=== PATIENT | male | born 1945 | race Caucasian/White ===

== ENCOUNTER 2025-06-07 08:23 | Outpatient (AMB) | payer MEDICARE, OTHER, SELFPAY ==
--- OUTSIDE RECORDS SUMMARY | 2025-06-07 08:32 | XMS_ITS | Encounter Summary ---
Author Organization [facility] Address [address] [place] [id number] Phone Care Team Providers Care Regulatory Affairs Intern Name Role Phone Meron Anton MD Primary Care Provider [phone] Encounter Details Date Type Department Care Team ([facility] st Contact Info) Description 09/23/2022 Procedure Pass [facility] [address] [place] [address] Social History Tobacco Use Types Packs/Day Years Used Date Smoking Tobacco: Former Smokeless Tobacco: Never Comments:quit 35 yrsa go Alcohol Use Standard Drinks/Week Comments Yes 1 (1 standard drink = 0.6 oz pur e alcohol) 3 mixed drinks per month Sex and Gender Information Value Date Recorded Sex Assigned at Not on file Legal Sex Male 12:00 PM EDT Gender Identity Not on file Sexual Orientation Not on file documented as of this encounter Plan of Treatment Not on file documented as of this encounter Visit Diagnoses Not on filedocumented in this encounter Care Teams Regulatory Affairs Intern Relationship Specialty Start Date End Date Meron Anton MD [address] [place] [address] PCP - General Internal Medicine 09/15/22 documented as of this encounter Additional Source Comments The information contained in this document represents components of the legal health record. It is not the complete legal health record.[facility]
--- OUTSIDE RECORDS SUMMARY | 2025-06-07 08:32 | XMS_ITS | Clinical Summary ---
Author Organization [facility] [address] [facility] Address [address] [facility] [place] [address] Phone Care Team Providers Care Provider Contracting Consultant Name Role Phone Meron Anton MD Primary Care Provider [phone] Allergies Active Allergy Reactions Criticality Noted Date Comments Vancomycin Itching,Skin Problems High 11/23/2024 Medications atorvastatin (LIPITOR) 40 mg tablet TAKE 1 TABLET ORALLY ONCE A DAY 90 DAYS Active blood-glucose meter (ONETOUCH VERIO METER MISC) 1 Device by Does not apply route daily. Dx Code E11.51 024 Active clopidogreL (PLAVIX) 75 mg tablet Take 1 Tab by mouth daily. Active donepeziL (ARICEPT) 10 mg tablet TAKE 1 TABLET BY MOUTH EVERY DAY AT BEDTIME FOR 90 DAYS Active gabapentin (NEURONTIN) 300 mg capsule Take 1 capsule (300 mg total) by mouth 3 (three) times a day. 024 Active lancets (OneTouch Delica Plus Lancet) 30 gauge 1 Stick by Does not apply route daily. 024 Active OneTouch UltraSoft Lancets Use to check BS daily. Dx Code E11.51 024 Active primidone (MYSOLINE) 50 mg tablet Take 1 Tablet by mouth. 022 Active aspirin 81 mg EC tablet 1 TABLET DAILY Activ e memantine (NAMENDA) 5 mg tablet Take 1 tablet (5 mg total) by mouth 2 times daily. Active ferrous sulfate 325 mg (65 mg elemental iron) tablet Take 1 tablet (325 mg total) by mouth 1 (one) time each day. Active magnesium oxide (MAG-OX) 400 mg magnesium tablet Take 1 tablet (400 mg total) by mouth 1 (one) time each day. Active blood sugar diagnostic (Convoeuch Verio test strips) test stripIndication s:Type 2 diabetes mellitus with diabetic peripheral angiopathy without gangrene ([facility] V24, [facility] V28) Use to test blood sugar 3 times a day. 300 strip 3 025 Active BD Janene 2nd Gen Pen Needle 32 gauge x 5/32 needle USE ONE DAILY WITH INSULIN. 100 each 3 025 Active omeprazole (PriLOSEC) [address] capsule Take 1 capsule (20 mg total) by mouth 1 (one) time each day. Do not crush or chew. 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 2 mL 025 Active Additional Information Patient taking differently: 1.5 mgsubcutaneous Every 7 days, Reported on 04/24/2025 lisinopril (PRINIVIL,STR NJ) 40 mg tablet Take 1 tablet (40 mg total) by mouth 1 (one) time each day. 90 tablet 025 Active insulin glargine U-300 (Toujeo SoloStar U-300 Insulin) 300 unit/mL (1.5 mL) CONCENTRATED injection pen 28 units SC at bedtime 15 mL 025 Active insulin degludec (TRESIBA FlexTouch U-200) 200 unit/mL (3 mL) CONCENTRATED injection pen 28 units SC at bedtime 15 mL 025 Active venlafaxine XR (EFFEXOR-XR) 150 mg 24 hr capsule TAKE 1 CAPSULE BY MOUTH 1 TIME EACH DAY. 90 capsule 1 025 Active traZODone (DESYREL) 100 mg tablet Take 0.5 tablets (50 mg total) by mouth at bedtime. 45 tablet 1 025 Active venlafaxine XR (EFFEXOR-XR) 150 mg 24 hr capsule Take 1 capsule (150 mg total) by mouth 1 (one) time each day. 90 capsule 1 025 2024 Discontinued traZODone (DESYREL) 100 mg tablet Take 0.5 tablets (50 mg total) by mouth at bedtime. 30 tablet 025 2024 Discontinued(R eorder) Active Problems Problem Noted Date Diagnosed Date Bleeding nose 11/25/2024 Overview (11/25/2024): Status post interventional radiology embolization. During hospitalization, see note November 23, 2024 Assessment & Plan (11/25/2024 5:44 PM EST): Orders: CBC and differential; Future Iron deficiency anemia due to chronic blood loss 11/25/2024 Overview (11/25/2024): Multifactorial, melena under the setting of acute illness believed to be related with nosebleed. 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 Alzheimer's disease ([facility] V24, [facility] V28) 1 12/07/2022 Assessment & Plan (01/26/2025 7:37 AM EDT): Assessment & Plan (11/25/2024 5:44 PM EST): Assessment & Plan (09/07/2024 3:53 PM EST): Tubular adenoma 04/23/2022 Overview (07/29/2024): Repeat CN in 5 years (due November 2020) Bronchiectasis without compl ication [place] [place] [facility] [place] 12/20/2015 Type 2 diabetes mellitus wit h ophthalmic complication [place] [place], [facility] V28) 08/21/2014 Overview (07/29/2024): Trace Cataracts noted outside eye exam 07/15/13 Dr Tovar. Type 2 diabetes mellitus wit h peripheral vascular disease [place] [place], [facility] V28) 08/21/2014 Assessment & Plan (11/25/2024 5:44 PM EST): Orders: Comprehensive metabolic panel; Future Assessment & Plan (09/07/2024 3:53 PM EST): Posttraumatic stress disorder 05/15/2014 Type II diabetes mellitus wi th neurological manifestations [place] [place] [facility] [place] 03/09/2013 Assessment & Plan (11/25/2024 5:44 PM EST): Assessment & Plan (10/20/2024 1:04 PM EST): His A1c was 10.3 3 months ago. He has an upcoming visit with endocrinology. Will recheck A1c. He continues on metformin, Lantus, Trulicity. PVD (peripheral vascular disease) ([facility] V24) 01/03/2013 Overview (07/29/2024): [facility] Assessment & Plan (11/25/2024 5:46 PM EST): Assessment & Plan (10/20/2024 1:04 PM EST): He is having surgery with [facility] vascular tomorrow. There has been no acute worsening of his symptoms from when he saw the vascular surgeon, but he continues to have significant discomfort in his foot. Assessment & Plan (09/07/2024 3:53 PM EST): Melanoma in situ of face ([facility] V24, [facility] V 28) 10/05/2012 Major depression 08/30/2012 Hematuria 04/20/2012 Overview (07/29/2024): - imaging ct 04/06 negative - cytology 04/06 negative Hypertrophy of prostate with urinary obstruction 04/20/2012 Psychosexual dysfunction 02/26/2010 Pure hypercholesterolemia 11/29/2009 Assessment & Plan (11/25/2024 5:44 PM EST): Orders: Comprehensive metabolic panel; Future Assessment & Plan (09/07/2024 3:53 PM EST): Basal cell carcinoma of skin 02/15/2009 Overview (07/29/2024): BCC right sideburn (nodular) Essential hypertension, benign 04/07/2006 Assessment & Plan (10/20/2024 1:04 PM EST): His blood pressure was initially elevated but improved somewhat with repeat testing. With patient's upcoming surgery tomorrow, I will defer any changes to his blood pressure regimen at this time. Assessment & Plan (09/07/2024 3:53 PM EST): Memory loss 04/06/2006 Assessment & Plan (10/20/2024 1:04 PM EST): Patient has ongoing memory issues. He is requesting a parking placard due to the issues in his foot. When we discussed this, I had mentioned that I have to also evaluate him for his safety driving, and I certainly have concerns in him leaning towards saying he is not capable of continue driving. Patient reports he had actually put a lot of thought to this himself, and is ready to give up his ability to drive. 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; 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 resolved after treatment, unspecified laterality, unspecified whether manager long term care insulin use (CMS/HCC V24, CMS/HCC V28) 04/13/2025 Telephone Adult Medicine [address] [phone] Meron Anton MD VNA 04/05/2025 10:30 AM EDT Office Visit Adult [address] [phone] Meron Anton MD 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 resolved after treatment, unspecified laterality, unspecified whether mcc insulin use ([facility] [place], [facility] V28) (Primary Dx); S/P carotid endarterectomy; Tachycardia; Anemia, unspecified type; Chronic kidney disease, unspecified CKD stage 03/21/2025 11:00 AM EDT Office Visit Endocrinology [address] [phone] Beth Royal [place] 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 resolved after treatment, unspecified laterality, unspecified whether manager long term care insulin use ([facility] [place], [facility] V28) (Primary Dx); Type II diabetes mellitus with neurological manifestations ([facility] [place], [facility] V28) from Last 3 Months Immunizations Name Administration Dates Next Due H1N1 Inj Preservative Free 11/29/2009 Influenza trivalent, 0.5mL ( Fluzone High-dose) 65yo and older 07/21/2024,07/03/2020,07/04/2019,08/09,07/02/2017,07/11/2016 Influenza trivalent, with pr eservative (Fluzone; Afluria) 6mo and older 08/31/2015,06/01/2014,07/14/2013,09/16,08/26/2011,08/11/2010,07/25/2009 ,09/09/2007 Influenza, Unspecified 07/21/2021,07/11/2016 [employer] SARS-CoV-2 COVID-19, mRNA, LNP-S, preservative free 07/22/2021 Pneumococcal conjugate 13 va lent (Prevnar 13, PCV13) 2mo and older 03/01/2015 Pneumococcal polysaccharide 23 valent (Pneumovax 23) 2yo and older 10/10/2016,08/29/2009,01/20/2002 Td Tetanus diptheria (Tdvax) 7yo and older 04/23/2022,09/27/2003 Tdap Tetanus diptheria acell ular pertussis (Boostrix; Adacel) 7yo and older 12/08/2011 Zoster Live 06/01/2014 Zoster recombinant (Shingrix ) 19yo and older 07/18/2019,04/11/2019 Surgical History Surgery Date Site/Laterality Comments TONSILLECTOMY 14 YO PROCEDURE: HISTORICAL TONSILLECTOMY; COMMENT: as child ADENOIDECTOMY PROCEDURE: HISTORICAL ADENOIDECTOMY OTHER SURGICAL HISTORY x 2 PROCEDURE: HISTORICAL MELANOMA; COMMENT: right sikhism and left eyebrow OTHER SURGICAL HISTORY 10/26/2011 PROCEDURE: STENT, NON-COR, TEM W/O DEL; COMMENT: Both legs COLONOSCOPY 11/26/2005 PROCEDURE: [place] COLONOSCOPY STOMA DX INCLUDING COLLJ SPEC SPX; COMMENT: nl except tics COLONOSCOPY 12/11/2015 PROCEDURE: [place] COLONOSCOPY STOMA W/RMVL JAGJIT POLYP/OTH LES SNARE; COMMENT: adenoma and tics; repeat in 5 years with 48 hour, 8 liter Colyte prep OTHER SURGICAL HISTORY 01/30/2022 PROCEDURE: GOWDIN DOCUMENTED; COMMENT: bilat significant vascular disease Medical History Medical History Date Comments Diverticulosis of colon (wit hout mention of hemorrhage) DX:Diverticulosis of colon ( without mention of hemorrhage) Anxiety state, unspecified DX:An xiety state, unspecified Overweight(278.02) DX:Overweight (278.02) Tuberculosis of lung, infilt rative, confirmation unspecified 04/06/2006 DX:Tuberculosis of lung, infiltrative, confirmation unspecified; COMMENT: Treated as child Memory loss 04/06/2006 DX:Memory loss Essential hypertension, benign 04/07/2006 D X:Essential hypertension, benign Melanoma ([facility] V[facility], [facility] V28) 12/28/2008 DX:Melanoma (HCC) Hematuria 04/20/2012 DX:Hematuria Hypertrophy of prostate with urinary obstruction and other lower urinary tract symptoms (LUTS) 04/20/2012 DX:Hypertrophy of prostate w ith urinary obstruction and other lower urinary tract symptoms (LUTS) Compound nevus 11/23/2012 DX:Compound nevu s Peripheral vascular disease ([facility] V[facility]) 01/03/2013 DX:Peripheral vascular disea se (HCC) Type 2 diabetes mellitus wit hout complications ([facility] V[facility], [facility] V28) DX:Type 2 diabetes mellitus without complications (HCC) Family history of colon canc er in mother DX:Family history of colon c ancer in mother; COMMENT: In her 60s Tubular adenoma of colon DX:Tubu lar adenoma of colon Peripheral vascular disease ([facility] V[facility]) DX:Peripheral vascular disea se (HCC); COMMENT: On Plavix Depressive disorder DX:Depressiv e disorder Hyperlipidemia DX:Hyperlipidemi a Family History Medical History Relation Name Comments Lung cancer Brother 1 Other cancer Brother 2 unknown Colon cancer Mother Relation Name Status Comments Brother 1 Brother 2 Brother 3 lung cancer Brother 4 UK possible can cer Daughter Alive 30 years old-he althy Father Drowned Maternal Grandfather [place] Maternal Grandmother [place] Mother Colon Ca Paternal Grandfather [place] Paternal Grandmother [place] Sister Alive 2 sisters ( hea lth unknown) Son Alive 25 years old-he althy Social History Tobacco Use Types Packs/Day Years Used Date Smoking Tobacco: Former Cigarettes Q uit: 10/26/1969 Smokeless Tobacco: Former Tobacco Cessation:Counseling Given: Not Answered Alcohol Use Standard Drinks/Week Comments Yes 0 (1 standard drink = 0.6 oz pur e alcohol) Housing Instability Answer Date Recorde d Are you worried that in the next 2 months you may not have stable housing? No 12/14/2024 Food Access & Nutrition Answer Date Rec orded Do you have access to a vari ety of food including fruits and vegetables? No 12/14/2024 Access to Healthcare Answer Date Record ed Within the last 3 months, ho w many times did you visit the emergency department for your medical care? 1 12/14/2024 Health Literacy Answer Date Recorded How often do you need to hav e someone help you when you read instructions, pamphlets, or other written material from your doctor or pharmacy? Always 12/14/2024 Caregiver: How often do you need to have someone help you when you read instructions, pamphlets, or other written material from your doctor or pharmacy? Not on file 12/14/2024 Financial Risk Answer Date Recorded How hard is it for you to pa y for the very basics like food, housing, medical care, and air conditioning / heating? Not very hard 12/14/2024 Transportation Answer Date Recorded Has the lack of transportati on kept you from meetings, work, or from getting things needed for daily living? No Has the lack of transportati on kept you from medical appointments or from getting medications? No 12/14/2024 Social Isolation Answer Date Recorded How often do you feel lonely or isolated from th ose around you? Never 12/14/2024 Food Risk Answer Date Recorded Within the past 12 months we worried whether our food would run out before we got money to buy more. Never true 12/14/2024 Within the past 12 months th e food we bought just didn't last and we didn't have money to get more. Never true 12/14/2024 Dependent Care Answer Date Recorded Do you need help finding or paying for care for your loved ones. For example, special needs child caregiver or elderly care for an older adult? No 12/14/2024 Education Answer Date Recorded Do you think completing more education or training, like finishing a GED, going to college, or learning a trade, would be helpful for you? No 12/14/2024 Employment and Income Answer Date Recor ded During the last four weeks, have you been actively looking for work? No 12/14/2024 Living Situation Answer Date Recorded What is your living situation? 0 12/14/2024 Interpersonal Safety Answer Date Record ed Physical Abuse 02/28/2025 Verbal Abuse 02/28/2025 Sex and Gender Information Value Date Recorded Sex Assigned at Male 12/21/2024 1:08 PM EST Legal Sex Male 11:56 AM EST Gender Identity Male 12/21/2024 1:08 PM EST Sexual Orientation Straight 12/21/2024 1: 08 PM EST Obstetrics History Last Filed Vital Signs Vital Sign Reading Time Taken Comments Blood Pressure 134/78 04/24/2025 10:10 AM EDT Pulse 76 04/24/2025 10:10 AM EDT Temperature 36.1 C (96.9 F) 04/24/2025 10:10 AM EDT Respiratory Rate 20 04/24/2025 10:10 AM EDT Oxygen Saturation 93% 03/21/2025 10:59 AM EDT Inhaled Oxygen Concentration - - Weight 101 kg (223 lb) 04/24/2025 10:10 AM EDT Height 175.3 cm (5' 9.02 ) 04/24/2025 10:10 AM E DT Body Mass Index 32.91 04/24/2025 10:10 AM EDT Plan of Treatment Upcoming Encounters Date Type Department Care Team (Late st Contact Info) Description 06/21/2025 10:45 AM EDT Office Visit Endocrinology - [address] [phone] Beth Royal PA [address] [place] [address] 07/28/2025 10:45 AM EDT Office Visit Adult Medicine [facility] [address] [place] [address] Meron Anton MD [address] [place] [address] 08/17/2025 8:50 AM EDT Office Visit Gastroenterology - [place] [address] [address] [place] [phone] Philipp Kahn DO [address] [place] [address] Health Maintenance Due Date Last Done Comments RSV Immunization Adult Patients (1 - 1-dose 75+ series) 2019 Medicare Annual Wellness Visit 07/30/2024 07/30/2023 Diabetes: Annual Foot Exam 09/15/2024 09/15/2023 Depression Screening 10/26/2024 07/30/2023 COVID-19 Vaccine (9 - Pfizer risk 2023- season) 2025 07/21/2024, 11/03/2023, 03/30/2023, Additional history exists Diabetes: Annual Retina Eye Exam 02/07/2025 02/08/2024 Influenza Vaccine (#1) 2025 , 07/03/2023, 07/30/2022, Additional history exists Diabetes: Blood Sugar Control Test (HGBA1C) 10/21/2025 04/21/2025, 12/15/2024, 10/29/2024, Additional history exists Social Influencers of Health Screening 12/14/2025 12/14/2024 Falls Risk Assessment 02/28/2026 02/28/2025 , 09/07/2024, 09/07/2024 Diabetes: Annual Urine Albumin-Creatinine Ratio (uACR) 04/21/2026 04/21/2025, 03/29/2025, 12/18/2023 Diabetes: Annual GFR (Glomerular Filtration Rate) 04/21/2026 04/21/2025, 12/21/2024, 12/15/2024, Additional history exists Hypertension/CHF/CAD Annual BMP Blood Test 04/21/2026 04/21/2025, 12/21/2024, 12/15/2024, Additional history exists Colorectal Cancer Screening: Colonoscopy 01/19/2029 01/20/2024 Cholesterol Screening (Lipid Panel) 04/21/2030 04/21/2025, 12/02/2023 DTaP,Tdap,and Td Vaccines (4 - Td or Tdap) 04/23/2032 04/23/2022, 12/08/2011, 09/27/2003 Pneumococcal Vaccine: 50+ Years Completed 10/10/2016, 03/01/2015, 08/29/2009, Additional history exists Zoster Vaccines Completed 07/18/2019, 03/26, 06/01/2014 HIB Vaccines Aged Out No longer eligi ble based on patient's age to complete this topic HPV Vaccines Aged Out No longer eligi ble based on patient's age to complete this topic Hepatitis A Vaccines Aged Out No long er eligible based on patient's age to complete this topic Hepatitis B Vaccines Aged Out No long er eligible based on patient's age to complete this topic IPV Vaccines Aged Out No longer eligi ble based on patient's age to complete this topic MMR Vaccines Aged Out No longer eligi ble based on patient's age to complete this topic Meningococcal ACWY Vaccine Aged Out N o longer eligible based on patient's age to complete this topic Meningococcal B Vaccine Aged Out No l onger eligible based on patient's age to complete this topic RSV Immunization Patients Under 20 months Aged Out No longer eligible based on patient's age to complete this topic Varicella Vaccines Aged Out No longer eligible based on patient's age to complete this topic Procedures Procedure Name Priority Date/Time Associated Diagnosis Comments MANUAL DIFFERENTIAL - SYSMEX WAM Routine 04/21/2025 8:10 AM EDT Anemia, unspecified type CBC WITH AUTO DIFFERENTIAL Routine 04/21/2025 8:10 AM EDT Anemia, unspecified type HEMOGLOBIN A1C Routine 04/21/2025 8:10 AM EDT 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 resolved after treatment, unspecified laterality, unspecified whether manager long term care insulin use (CMS/HCC V24, CMS/HCC V28) Type II diabetes mellitus with neurological manifestations (CMS/HCC V24, CMS/HCC V28) LIPID PANEL WITH REFLEX TO DIRECT LDL Routine 04/21/2025 8:10 AM EDT 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 resolved after treatment, unspecified laterality, unspecified whether mcc insulin use (CMS/HCC V24, CMS/HCC V28) Type II diabetes mellitus with neurological manifestations (CMS/HCC V24, CMS/HCC V28) MICROALBUMIN CREATININE URINE RATIO Routine 04/21/2025 8:10 AM EDT 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 resolved after treatment, unspecified laterality, unspecified whether mcc insulin use (CMS/HCC V24, CMS/HCC V28) Type II diabetes mellitus with neurological manifestations (CMS/HCC V24, CMS/HCC V28) CBC AND DIFFERENTIAL Routine 04/21/2025 8:10 AM EDT Anemia, unspecified type COMPREHENSIVE METABOLIC PANEL Routine 04/21/2025 8:10 AM EDT Chronic kidney disease, unspecified CKD stage THYROID STIMULATING HORMONE WITH REFLEX TO FREE T4 AND FREE T3 Routine 04/21/2025 8:10 AM EDT Tachycardia ECG 12-LEAD Routine 04/05/2025 12:01 PM EDT Tachycardia DIABETES EYE EXAM Routine 02/08/2024 COLONOSCOPY Routine 01/20/2024 DIABETES FOOT EXAM Routine 09/15/2023 DEPRESSION SCREENING Routine 07/30/2023 from Last 3 Months or Most Recently Relevant to Health Maintenance Results * Thyroid stimulating hormone with reflex to free t4 and free t3 (04/21/2025 8:10 AM EDT) TSH 1.16 0.40 - 4.00 mcIU/mL LAB CHEMISTRY METHOD 04/21/2025 12:[address] [facility] Blood Venous blood specimen / Unknown Venipuncture / Unknown 04/21/2025 8:10 AM EDT 04/21/2025 8:10 AM EDT Meron Anton MD LAB BLOOD ORDERABLES Final Resul t [facility] [address] [place] [address], * Lipid panel with reflex to direct LDL (04/21/2025 8:10 AM EDT) Cholesterol 154 0 - 200 mg/dL LAB CHEMISTRY METHOD 04/21/2025 11:57 AM [facility] Triglycerides 119 0 - 150 mg/dL LAB CHEMISTRY METHOD 04/21/2025 11:57 AM [facility] HDL 55 >=40 mg/dL LAB CHEMISTRY METHOD 04/21/2025 11:57 AM [facility] LDL Calculated 75 0 - 100 mg/dL LAB CHEMISTRY METHOD 04/21/2025 11:57 AM [facility] VLDL Cholesterol Femi 23.8 mg/dL LAB CHEMISTRY METHOD 04/21/2025 11:57 AM [facility] Non HDL Chol. (LDL+VLDL) 99 <145 mg/dL LAB CHEMISTRY METHOD 04/21/2025 11:57 AM [facility] Chol/HDL Ratio 2.8 0.0 - 4.4 LAB CHEMISTRY METHOD 04/21/2025 11:57 AM [facility] Blood Venous blood specimen / Unknown Venipuncture / Unknown 04/21/2025 8:10 AM EDT 04/21/2025 8:10 AM EDT us Beth ROSENBERG LAB BLOOD ORDERABLES Final Result [facility] [address] [place] [address], * (ABNORMAL) Manual differential (04/21/2025 8:10 AM EDT) Neutrophils % 74.0 % LAB HEMETOLOGY METHOD 04/21/2025 1:[address] [facility] Bands % 2.0 % LAB HEMETOLOGY METHOD 04/21/2025 1:[address] [facility] Lymphocytes % 13.0 % LAB HEMETOLOGY METHOD 04/21/2025 1:[address] [facility] Monocytes % 5.0 % LAB HEMETOLOGY METHOD 04/21/2025 1:[address] [facility] Eosinophils % 5.0 % LAB HEMETOLOGY METHOD 04/21/2025 1:[address] [facility] Basophils % 1.0 % LAB HEMETOLOGY METHOD 04/21/2025 1:21 PM [facility] Neutrophils Absolute Manual 10.80(H) 1.50 - 7.00 K/mcL LAB HEMETOLOGY METHOD 04/21/2025 1:[address] [facility] Bands Absolute Manual 0.29(H) 0.00 - 0.00 K/mcL LAB HEMETOLOGY METHOD 04/21/2025 1:[address] [facility] Lymphocytes Absolute 1.90 1.00 - 5.00 K/mcL LAB HEMETOLOGY METHOD 04/21/2025 1:21 PM [facility] Monocytes Absolute Manual 0.73 0.20 - 1.00 K/mcL LAB HEMETOLOGY METHOD 04/21/2025 1:[address] [facility] Eosinophils Absolute Manual 0.73(H) 0.00 - 0.50 K/mcL LAB HEMETOLOGY METHOD 04/21/2025 1:[address] [facility] Basophils Absolute Manual 0.15 0.00 - 0.20 K/mcL LAB HEMETOLOGY METHOD 04/21/2025 1:[address] [facility] Rbc Morphology Present( A) Consistent with indices, Normal for Isom LAB HEMETOLOGY METHOD 04/21/2025 1:[address] [facility] Comment:RBC: Morphology agre es with CBC Platelet Morphology - WAM See Note(A) Normal LAB HEMETOLOGY METHOD 04/21/2025 1:[address] [facility] Comment:PLT: Normal Polychromasia Present Present( A) (none) LAB HEMETOLOGY METHOD 04/21/2025 1:[address] [facility] Ovalocytes Present 5 - 10%(A) (none) LAB HEMETOLOGY METHOD 04/21/2025 1:[address] [facility] Schistocytes Present < 5%(A) (none) LAB HEMETOLOGY METHOD 04/21/2025 1:[address] [facility] Blood Venous blood specimen / Unknown Venipuncture / Unknown 04/21/2025 8:10 AM EDT 04/21/2025 8:10 AM EDT us Meron Anton MD LAB BLOOD ORDERABLES Final Resul t [facility] [address] [place] [address], * (ABNORMAL) CBC auto differential (04/21/2025 8:10 AM EDT) WBC 14.6(H) 4.8 - 10.8 K/mcL LAB HEMETOLOGY METHOD 04/21/2025 1:[address] [facility] RBC 3.90(L) 4.50 - 5.50 M/mcL LAB HEMETOLOGY METHOD 04/21/2025 1:21 PM [facility] Hemoglobin 10.7(L) 13.5 - 17.5 g/dL LAB HEMETOLOGY METHOD 04/21/2025 1:21 PM [facility] Hematocrit 34.1(L) 42.0 - 54.0 % LAB HEMETOLOGY METHOD 04/21/2025 1:21 PM [facility] MCV 87.9 79.0 - 98.0 FL LAB HEMETOLOGY METHOD 04/21/2025 1:21 PM [facility] MCH 27.6 27.0 - 32.0 pcg LAB HEMETOLOGY METHOD 04/21/2025 1:21 PM [facility] MCHC 31.4(L) 32.0 - 37.0 g/dL LAB HEMETOLOGY METHOD 04/21/2025 1:21 PM [facility] RDW 27.8(H) 11.0 - 15.0 % LAB HEMETOLOGY METHOD 04/21/2025 1:21 PM [facility] Platelets 347 130 - 400 K/mcL LAB HEMETOLOGY METHOD 04/21/2025 1:21 PM [facility] Comment:reviewed by slide MPV 10.8 7.0 - 11.0 FL LAB HEMETOLOGY METHOD 04/21/2025 1:21 PM [facility] NRBC 0.3 <1.0 % LAB HEMETOLOGY METHOD 04/21/2025 1:21 PM [facility] NRBC Absolute 0.04 <0.10 K/mcL LAB HEMETOLOGY METHOD 04/21/2025 1:21 PM [facility] Blood Venous blood specimen / Unknown Venipuncture / Unknown 04/21/2025 8:10 AM EDT 04/21/2025 8:10 AM EDT Meron Anton MD LAB BLOOD ORDERABLES Final Resul t [facility] [address] [place] [address], * Microalbumin creatinine urine ratio (04/21/2025 8:10 AM EDT) Creatinine, Urine 98.0 mg/dL LAB CHEMISTRY METHOD 04/21/2025 12:[address] [facility] Microalb, Ur 7.6 0.0 - 29.0 mg/L LAB CHEMISTRY METHOD 04/21/2025 12:[address] [facility] Microalb/Creat Ratio 8 <30 mg/g creat LAB CHEMISTRY METHOD 04/21/2025 12:[address] [facility] Urine Urine specimen from urethra / Unknown Non-blood Collection / Unknown 04/21/2025 8:10 AM EDT 04/21/2025 8:10 AM EDT Beth ROSENBERG LAB URINE ORDERABLES Final Result Performing Organization Address [facility]/ZIP Md de Phone Number [facility] [address] [place] [address], [place] [phone] * (ABNORMAL) Hemoglobin A1c (04/21/2025 8:10 AM EDT) Hemoglobin A1C 8.6(H) <6.5 % LAB CHEMISTRY METHOD 04/21/2025 10:[address] [facility] Mean Bld Glu Estim. 200 mg/dL LAB CHEMISTRY METHOD 04/21/2025 10:[address] [facility] Blood Venous blood specimen / Unknown Venipuncture / Unknown 04/21/2025 8:10 AM EDT 04/21/2025 8:10 AM EDT us Beth ROSENBERG LAB BLOOD ORDERABLES Final Result [facility] [address] [place] [address], [place] [phone] * (ABNORMAL) Comprehensive metabolic panel (04/21/2025 8:10 AM EDT) Sodium 134 133 - 145 mmol/L LAB CHEMISTRY METHOD 04/21/2025 11:55 AM [facility] Potassium 4.9 3.5 - 5.5 mmol/L LAB CHEMISTRY METHOD 04/21/2025 11:55 AM [facility] Chloride 103 96 - 110 mmol/L LAB CHEMISTRY METHOD 04/21/2025 11:55 AM [facility] CO2 26 21 - 32 mmol/L LAB CHEMISTRY METHOD 04/21/2025 11:55 AM [facility] Anion Gap 5 3 - 11 LAB CHEMISTRY METHOD 04/21/2025 11:55 AM [facility] Glucose 198(H) 70 - 100 mg/dL LAB CHEMISTRY METHOD 04/21/2025 11:55 AM [facility] BUN 19 5 - 25 mg/dL LAB CHEMISTRY METHOD 04/21/2025 11:55 AM [facility] Creatinine 1.04 0.70 - 1.30 mg/dL LAB CHEMISTRY METHOD 04/21/2025 11:55 AM [facility] eGFR 73 >=60 mL/min/1. 73m2 LAB CHEMISTRY METHOD 04/21/2025 11:55 AM [facility] Comment:Calculation based on the Chronic Kidney Disease Epidemiology Collaboration (CKD-EPI) equation refit without adjustment for race. BUN/Creatinine Ratio 18.3 LAB CHEMISTRY METHOD 04/21/2025 11:55 AM [facility] Calcium 9.7 8.5 - 10.5 mg/dL LAB CHEMISTRY METHOD 04/21/2025 11:55 AM [facility] AST (SGOT) 21 10 - 42 unit/L LAB CHEMISTRY METHOD 04/21/2025 11:55 AM [facility] ALT (SGPT) 43 10 - 60 unit/L LAB CHEMISTRY METHOD 04/21/2025 11:55 AM [facility] Alkaline Phosphatase 80 42 - 121 unit/L LAB CHEMISTRY METHOD 04/21/2025 11:55 AM [facility] Total Protein 7.0 6.0 - 8.0 g/dL LAB CHEMISTRY METHOD 04/21/2025 11:55 AM [facility] Albumin 3.8 3.2 - 5.0 g/dL LAB CHEMISTRY METHOD 04/21/2025 11:55 AM [facility] Total Bilirubin 0.5 0.0 - 1.4 mg/dL LAB CHEMISTRY METHOD 04/21/2025 11:55 AM [facility] Blood Venous blood specimen / Unknown Venipuncture / Unknown 04/21/2025 8:10 AM EDT 04/21/2025 8:10 AM EDT Meron Anton MD LAB BLOOD ORDERABLES Final Resul t [facility] [address] [place] [address], * ECG 12 lead (04/05/2025 12:01 PM EDT) Narrative Meron Anton MD - 04/05/2025 12:01 PM EDT EKG for evaluation of patient's tachycardia showed a normal sinus rhythm [address]-T changes. us Meron Anton MD ECG ORDERABLES Final Result * Diabetes Eye Exam (02/08/2024) Pathologist [facility] [place] Diabetes: Annual Retina Eye Exam abstracted Historical Provider MD HEALTH MAINTENANCE Final Result * Colonoscopy (01/20/2024) Pathologist [facility] Colonoscopy no interpretation , abstracted Anatomical Region Laterality Modality Other Historical Provider HEALTH MAINTENANCE Final Result * Diabetes Foot Exam (09/15/2023) Pathologist [facility] Diabetes: Annual Foot Exam abstracted Historical Provider MD HEALTH MAINTENANCE Final Result * Depression Screening (07/30/2023) Pathologist [facility] Depression Screening abstracted Historical Provider HEALTH MAINTENANCE Final Result from Last 3 Months or Most Recently Relevant to Health Maintenance Insurance MEDICARE [facility] Care Teams Provider Contracting Consultant Relationship Specialty Start Date End Date Meron Anton MD [address] [place] [address] PCP - General Internal Medicine 04/25/20
--- OUTSIDE RECORDS SUMMARY | 2025-06-07 08:33 | XMS_ITS | Clinical Summary ---
Author Organization [facility] Address [address] [place] [address] Phone Care Team Providers Care Technical Operations Specialist Name Role Phone Meron Anton MD Primary Care Provider [phone] Allergies Active Allergy Reactions Criticality Noted Date Comments Vancomycin 12/29/2024 Medications acetaminophen (TYLENOL) 325 MG tablet Take 975 mg by mouth every 6 (six) hours if needed 10/28/2024 Active amLODIPine (NORVASC) 10 MG tablet Take 10 mg by mouth 1 (one) time each day 11/22/2024 Active aspirin 81 MG chewable tablet Chew 81 mg in the morning. Active atorvastatin (LIPITOR) 40 MG tablet Take 1 tablet by mouth 1 (one) time each day at the same time 09/15/2016 Active clopidogrel (PLAVIX) 75 MG tablet Take 75 mg by mouth in the morning. 09/26/2024 Active donepezil (ARICEPT) 10 MG tablet Take 10 mg by mouth in the morning. 03/17/2022 Active gabapentin (NEURONTIN) 300 MG capsule Take 300 mg by mouth in the morning and 300 mg at noon and 300 mg in the evening. 03/07/2024 Active ferrous sulfate 325 (65 Fe) MG tablet Take 325 mg by mouth in the morning. Active metFORMIN (GLUCOPHAGE) 500 MG tablet Take 250 mg by mouth in the morning and 250 mg at noon and 250 mg in the evening. Active pantoprazole (PROTONIX) 40 MG EC tablet Take 40 mg by mouth in the morning and 40 mg in the evening. 11/22/2024 Active primidone (MYSOLINE) 50 MG tablet Take 50 mg by mouth 1 (one) time each day Active traZODone (DESYREL) 50 MG tablet Take 0.5 tablets by mouth every night 10/28/2024 Active venlafaxine 150 MG 24 hr tablet Take 75 mg by mouth in the morning. 09/15/2016 Active hydrALAZINE 100 MG tablet Take 100 mg by mouth in the morning and 100 mg at noon and 100 mg in the evening. 11/22/2024 Active insulin glargine (LANTUS) 100 UNIT/ML injection Inject under the skin every night Active memantine (NAMENDA) 5 MG tablet Take 5 mg by mouth in the morning and 5 mg in the evening. Active isosorbide mononitrate (IMDUR) 30 MG 24 hr tablet Take 30 mg by mouth 1 (one) time each day Do not crush or chew. Active magnesium oxide (MAG-OX) 400 MG tabletIndication s:Hypomagnesemia Take 1 tablet (400 mg total) by mouth 1 (one) time each day 30 tablet 11 01/22/2025 01/23/20 26 Active lisinopril 40 MG tablet Take 40 mg by mouth in the morning. 11/22/2024 Active Dulaglutide (Trulicity) 1.5 MG/0.5ML solution auto-injector Inject 0.75 mg under the skin 12/02/2023 Active omeprazole (PriLOSEC) [address] capsule Take 1 capsule by mouth in the morning and 1 capsule in the evening. 03/17/2024 Active Active Problems Problem Noted Date Diagnosed Date Hypomagnesemia 04/03/2025 Chronic kidney disease, stage 2 (mild) Acute nontraumatic kidney injury, not otherwise specified 12/29/2024 Hypertension 12/29/2024 Iron deficiency anemia, not otherwise specified 12/29/2024 Encounters Date Type Department Care Team Description 04/03/2025 9:30 AM EDT [facility] [address] [address] Jada Williamson ARNP Chronic kidney disease, stage 2 (mild) (Primary Dx); Hypertension; Hypomagnesemia; Iron deficiency anemia, not otherwise specified; Anti-nuclear factor detected from Last 3 Months Family History Medical History Relation Comments Dementia Mother Relation Status Comments Mother Social History Tobacco Use Types Packs/Day Years Used Date Smoking Tobacco: Former Cigarettes Tobacco Cessation:Counseling Given: Not Answered Alcohol Use Standard Drinks/Week Comments Yes 0 (1 standard drink = 0.6 oz pur e alcohol) Sex and Gender Information Value Date Recorded Sex Assigned at Not on file Legal Sex Male 9:32 AM EST Gender Identity Not on file Sexual Orientation Not on file Last Filed Vital Signs Vital Sign Reading Time Taken Comments Blood Pressure 120/54 04/03/2025 10:01 AM EDT Pulse 75 04/03/2025 9:29 AM EDT Temperature - - Respiratory Rate - - Oxygen Saturation - - Inhaled Oxygen Concentration - - Weight 99.3 kg (219 lb) 04/03/2025 9:29 AM EDT Height - - Body Mass Index - - Plan of Treatment Upcoming Encounters Date Type Department Care Team (Late st Contact Info) Description 10/02/2025 9:15 AM EST Office Visit [facility] P.. [address] [address] Jada Williamson ARNP [address] [address] Health Maintenance Due Date Last Done Comments Diabetes: Ophthalmology Exam 11/23/2024 Diabetes: Pedal Pulse Checked 11/23/2024 Diabetes: Sensory Foot Exam 11/23/2024 Diabetes: Visual Foot Exam 11/23/2024 Diabetes: Hemoglobin A1C 03/14/2025 12/15/2024, 01/2025 Influenza Vaccine (#1) 2025 , 07/21/2021, 07/03/2020, Additional history exists Pneumococcal Vaccine: 50+ Years Completed 10/10/2016, 03/01/2015, 08/29/2009, Additional history exists Hepatitis B Vaccine Aged Out No longe r eligible based on patient's age to complete this topic Procedures Procedure Name Priority Date/Time Associated Diagnosis Comments HEPATITIS B CORE AB TOTAL Routine 03/29/2025 8:32 AM EDT HEPATITIS B SURFACE ANTIGEN Routine 03/29/2025 8:32 AM EDT MAGNESIUM Routine 03/29/2025 8:32 AM EDT ANGELIKA PANEL Routine 03/29/2025 8:32 AM EDT HEPATITIS C ANTIBODY Routine 03/29/2025 8:32 AM EDT C3 COMPLEMENT Routine 03/29/2025 8:32 AM EDT ALDOSTERONE Routine 03/29/2025 8:32 AM EDT RENIN ACTIVITY Routine 03/29/2025 8:32 AM EDT C4 COMPLEMENT Routine 03/29/2025 8:32 AM EDT CORTISOL, FREE, SERUM Routine 03/29/2025 8:32 AM EDT METANEPHRINES,FRACTIONA CHEL, PLASMA FREE Routine 03/29/2025 8:32 AM EDT URINE ALBUMIN / CREATININE RATIO Routine 03/29/2025 8:32 AM EDT Acute nontraumatic kidney injury, not otherwise specified (HCC) Hypertension Iron deficiency anemia, not otherwise specified PROTEIN / CREATININE RATIO, URINE Routine 03/29/2025 8:32 AM EDT Acute nontraumatic kidney injury, not otherwise specified (HCC) Hypertension Iron deficiency anemia, not otherwise specified IRON PANEL (FE, TIBC, TSAT) Routine 03/29/2025 8:32 AM EDT Acute nontraumatic kidney injury, not otherwise specified (HCC) Hypertension Iron deficiency anemia, not otherwise specified FERRITIN Routine 03/29/2025 8:32 AM EDT Acute nontraumatic kidney injury, not otherwise specified (HCC) Hypertension Iron deficiency anemia, not otherwise specified CBC Routine 03/29/2025 8:32 AM EDT Acute nontraumatic kidney injury, not otherwise specified (HCC) Hypertension Iron deficiency anemia, not otherwise specified RENAL FUNCTION PANEL Routine 03/29/2025 8:32 AM EDT Acute nontraumatic kidney injury, not otherwise specified (HCC) Hypertension Iron deficiency anemia, not otherwise specified PTH, INTACT Routine 03/29/2025 8:32 AM EDT Acute nontraumatic kidney injury, not otherwise specified (HCC) Hypertension Iron deficiency anemia, not otherwise specified IMMUNOFIXATION ELECTROPHORESIS Routine 03/29/2025 8:32 AM EDT Acute nontraumatic kidney injury, not otherwise specified (HCC) Hypertension Iron deficiency anemia, not otherwise specified from Last 3 Months Results * Renin Activity (03/29/2025 8:32 AM EDT) Renin Activity 0.707 0.167 - 5.380 ng/mL/hr [facility] 03/29/2025 8:32 AM EDT 03/29/2025 Narrative [facility] - 04/07/2025 5:05 AM EDT Test(s) [id number] Activity, Plasma was developed and its performance characteristics determined by [facility]. It has not been cleared or approved by the Food and Drug Administration. Jada Williamson [facility] LAB BLOOD ORDERABLES Final Result [facility] [address] [place] [address] * Metanephrines,Frac., Pl. Free (03/29/2025 8:32 AM EDT) Normetanephrin e, Pl 96.9 0.0 - 285.2 pg/mL [facility] Metanephrine, Plasma 27.1 0.0 - 88.0 pg/mL [facility] [place] 03/29/2025 8:32 AM EDT 03/29/2025 Narrative [facility] - 04/07/2025 5:05 AM EDT Test(s) [id number], Pl; [id number]-Bqhjmaitwfdv, Pl was developed and its performance characteristics determined by [facility]. It has not been cleared or approved by the Food and Drug Administration. [facility] LAB BLOOD ORDERABLES Final Result Performing Organization Address City/[facility]/ZIP Co de Phone Number [facility] [address] [place] [phone] * Hepatitis C antibody (03/29/2025 8:32 AM EDT) Hep C Virus Ab Non Reactive Non Reactive [facility] [phone] Comment: HCV antibody alone does not differentiate between previously resolved infection and active infection. Equivocal and Reactive HCV antibody results should be followed up with an HCV RNA test to support the diagnosis of active HCV infection. 03/29/2025 8:32 AM EDT 03/29/2025 [facility] LAB BLOOD ORDERABLES Final Result Performing Organization Address City/[facility]/ZIP Co de Phone Number [facility] [address], [address] [place] [address] * (ABNORMAL) Iron Panel (Fe, TIBC, TSAT) (03/29/2025 8:32 AM EDT) TIBC 245(L) 250 - 450 ug/dL [facility] UIBC 175 111 - 343 ug/dL [facility] Iron 70 38 - 169 ug/dL [facility] Iron Saturation (TSat) 29 15 - 55 % [facility] Blood specimen (specimen) Venous blood / Unknown 03/29/2025 8:32 AM EDT 03/29/2025 [facility] LAB BLOOD ORDERABLES Final Result Performing Organization Address [facility]/ZIP Co de Phone Number [facility] [address] [place] [address] * Urine Protein / creatinine ratio (03/29/2025 8:32 AM EDT) Creatinine, Ur 121.7 Not Estab. mg/dL [facility] Protein, Ur 11.4 Not Estab. mg/dL [facility] Urine Protein/Creatin ine Ratio 94 0 - 200 mg/g creat [facility] Urine specimen (specimen) Urine specimen obtained by clean catch procedure / Unknown 03/29/2025 8:32 AM EDT 03/29/2025 [facility]INE ORDER[facility]LES Final Result Performing Organization Address [facility] [[email or web address]] Co de Phone Number [facility] [address] [place] [address] * Urine Albumin / Creatinine Ratio (03/29/2025 8:32 AM EDT) Albumin, Urine 7.9 Not Estab. ug/mL [facility] Albumin/Creatin ine Ratio 6 0 - 29 mg/g creat [facility] Comment: Normal: 0 - 29 Moderately increased: 30 - 300 Severely increased: >300 Urine specimen (specimen) Urine specimen obtained by clean catch procedure / Unknown 03/29/2025 8:32 AM EDT 03/29/2025 [facility] LAB URINE ORDERABLES Final Result Performing Organization Address City/[facility]/ZIP Co de Phone Number [facility] [address] [place] [address] * Aldosterone (03/29/2025 8:32 AM EDT) [facility] Aldosterone 1.4 0.0 - 30.0 ng/dL [facility] 03/29/2025 8:32 AM EDT 03/29/2025 Narrative [facility] - 04/07/2025 5:05 AM EDT Test(s) [id number] was developed and its performance characteristics determined by [facility]. It has not been cleared or approved by the Food and Drug Administration. [facility] LAB BLOOD ORDERABLES Final Result Performing Organization Address [facility] [[email or web address]] Co de Phone Number [facility] [address] [place] [phone] * Hepatitis B Core Antibody, Total (03/29/2025 8:32 AM EDT) [facility] HBc Total Ab, S Negative Negative [facility] 03/29/2025 8:32 AM EDT 03/29/2025 [facility] LAB BLOOD ORDERABLES Final Result Performing Organization Address [facility] de Phone Number [facility] [address], [address] [place] [address] * Cortisol, Free, LC/MS, Serum (03/29/2025 8:32 AM EDT) [facility] Cortisol Free LC/MS/MS 1.24 ug/dL [facility] Comment: These tests were developed and their performance characteristics determined by [facility]. They have not been cleared or approved by the Food and Drug Administration. Reference Range: 8 AM 0.10 - 1.20 4 PM 0.042 - 0.872 03/29/2025 8:32 AM EDT 03/29/2025 [facility] LAB BLOOD ORDERABLES Final Result [facility] [address] [place] [address] * Hepatitis B Surface Antigen (03/29/2025 8:32 AM EDT) Hep B Surface Ag Negative Negative [facility] 03/29/2025 8:32 AM EDT 03/29/2025 [facility] LAB BLOOD ORDERABLES Final Result Performing Organization Address City/[facility]/ZIP Co de Phone Number [facility] [address] [place] [address] * (ABNORMAL) CBC (03/29/2025 8:32 AM EDT) WBC 16.5(H) 3.4 - 10.8 x10E3/uL [facility] RBC 3.59(L) 4.14 - 5.80 x10E6/uL [facility] Hemoglobin 9.9(L) 13.0 - 17.7 g/dL [facility] Hematocrit 31.8(L) 37.5 - 51.0 % [facility] MCV 89 79 - 97 fL [facility] MCH 27.6 26.6 - 33.0 pg [facility] MCHC 31.1(L) 31.5 - 35.7 g/dL [facility] RDW 24.9(H) 11.6 - 15.4 % [facility] Platelets 277 150 - 450 x10E3/uL [facility] Blood specimen (specimen) Venous blood / Unknown 03/29/2025 8:32 AM EDT 03/29/2025 [facility] BLOOD ORDERABLES Final Result [facility] [address] [place] [address] * Immunofixation electrophoresis (03/29/2025 8:32 AM EDT) IgG 671 603 - 1,613 mg/dL [facility] IgA 224 61 - 437 mg/dL [facility] IgM 84 15 - 143 mg/dL [facility] Immunofixation Result, Serum Comment [facility] Comment: The immunofixation pattern appears unremarkable. Evidence of monoclonal protein is not apparent. Blood specimen (specimen) Venous blood / Unknown 03/29/2025 8:32 AM EDT 03/29/2025 [facility] LAB BLOOD ORDERABLES Final Result [facility] [address] [place] [address] * (ABNORMAL) C3 Complement (03/29/2025 8:32 AM EDT) C3 Complement 178(H) 82 - 167 mg/dL [facility] 03/29/2025 8:32 AM EDT 03/29/2025 [facility] LAB BLOOD ORDERABLES Final Result [facility] [address] [place] [address] * (ABNORMAL) C4 Complement (03/29/2025 8:32 AM EDT) C4 Complement 46(H) 12 - 38 mg/dL [facility] 03/29/2025 8:32 AM EDT 03/29/2025 [facility] BLOOD ORDERABLES Final Result Performing Organization Address [facility]/ZIP Co de Phone Number [facility] [address] [place] [address] * (ABNORMAL) ANGELIKA Panel (03/29/2025 8:32 AM EDT) Pathologist [facility] ANGELIKA Positive(A) Negative [facility] 03/29/2025 8:32 AM EDT 03/29/2025 [facility] LAB BLOOD ORDERABLES Final Result Performing Organization Address City/[facility] [[email or web address]] Co de Phone Number [facility] [address] [place] [address] * PTH, intact (03/29/2025 8:32 AM EDT) Pathologist [facility] PTH 28 15 - 65 pg/mL [facility] Blood specimen (specimen) Venous blood / Unknown 03/29/2025 8:32 AM EDT 03/29/2025 [facility] LAB BLOOD ORDERABLES Final Result Performing Organization Address City/[facility]/ZIP Co de Phone Number [facility] [address] [place] [address] * (ABNORMAL) Magnesium (03/29/2025 8:32 AM EDT) Pathologist [facility] Magnesium 1.5(L) 1.6 - 2.3 mg/dL [facility] 03/29/2025 8:32 AM EDT 03/29/2025 [facility] LAB BLOOD ORDERABLES Final Result Performing Organization Address City/[facility]/ZIP Co de Phone Number [facility] [address] [place] [address] * Ferritin (03/29/2025 8:32 AM EDT) Pathologist [facility] Ferritin 353 30 - 400 ng/mL [facility] Blood specimen (specimen) Venous blood / Unknown 03/29/2025 8:32 AM EDT 03/29/2025 [facility] LAB BLOOD ORDERABLES Final Result Performing Organization Address City/[facility]/ZIP Co de Phone Number [facility] [address] [place] [address] * (ABNORMAL) Renal function panel (03/29/2025 8:32 AM EDT) Pathologist [facility] Glucose 160(H) 70 - 99 mg/dL [facility] BUN 22 8 - 27 mg/dL [facility] Creatinine 0.89 0.76 - 1.27 mg/dL [facility] eGFR CKD-EPI CR 2020 87 >59 mL/min/1.7 3 [facility] BUN/Creatinine Ratio 25(H) 10 - 24 [facility] Sodium 140 134 - 144 mmol/L [facility] Potassium 4.7 3.5 - 5.2 mmol/L [facility] Chloride 100 96 - 106 mmol/L [facility] Bicarbonate (CO2) 22 20 - 29 mmol/L [facility] Calcium 10.1 8.6 - 10.2 mg/dL [facility] Albumin 4.1 3.8 - 4.8 g/dL [facility] Phosphorus 4.7(H) 2.8 - 4.1 mg/dL [facility] Blood specimen (specimen) Venous blood / Unknown 03/29/2025 8:32 AM EDT 03/29/2025 us [facility] LAB BLOOD ORDERABLES Final Result [facility] [address] [place] [address] from Last 3 Months Insurance Medicare [facility] Care Teams Technical Operations Specialist Relationship Specialty Start Date End Date Meron Anton MD [address] [place] [address] [phone] PCP - General Internal Medicine 01/05/25
--- OUTSIDE RECORDS SUMMARY | 2025-06-07 08:33 | XMS_ITS ---
Author Name [facility] Organization Unknown Care Team Organization Name Specialty Phone Email Start Date End Da te [facility] 09/02/2022 06/13/2024
--- NOTE | 2025-06-07 08:51 | MHC.OFFVIS ---
Intake Visit Reasons: 6 month Allergies No Known Allergies Allergy (Unverified 07/12/20 15:18) HPI Comments Details: The patient is an 79-year-old male presenting with a follow-up for the management of Alzheimer's Disease, peripheral neuropathy, and recent vascular surgeries. He is currently on medication for cognitive stability and reports an absence of behavioral disturbances. There are issues with balance due to neuropathy, managed by gabapentin, leading to better pain control at night. However, there is a concern about the patient's altered sleep patterns with increased daytime sleep. Since the last visit, the patient has undergone significant vascular interventions, including an arterial bypass in the left leg and a carotid endarterectomy on the right side, with a subsequent stable recovery. The patient adheres to a medication plan involving low-dose aspirin and clopidogrel to manage vascular conditions. Anxiety is controlled with a prescribed ngoc. Anemia identified during recent hospital admission has prompted further investigation with a biopsy due to persistent low hemoglobin. 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 Reports issues with balance. - Musculoskeletal: Reports foot pain from neuropathy. - Psychiatric: Denies any behavioral issues, reports anxiety. - Vascular: Post-arterial bypass in left leg and recent right carotid endarterectomy. - Hematological: Reports low hemoglobin, anemia under investigation. - Sleep: Reports insomnia, altered sleep pattern with night-time wakefulness. Assessment & Plan Assessment & Plan (1) Alzheimer dementia: Comment: MRI brain WO at [facility] in Jul 2023: mod MVD, mild to mod atrophy NCV/EMG LE 05/06/18 Mild to moderate chronic axonal sensory and motor peripheral neuropathy. MRI brain WO at in April 2018: an embolic looking left frontal chronic infarct, a few small b/l embolic/atherothrombotic looking chronic infarcts, mild pontine b/l hyperintensity. Code(s): G30.9 - Alzheimer's disease, unspecified; F02.80 - Dementia in other diseases classified elsewhere, unspecified severity, without behavioral disturbance, psychotic disturbance, mood disturbance, and anxiety Category: Medical Qualifiers: Alzheimer's disease onset: late onset Dementia severity: moderate Dementia behavioral or psychological symptom: without behavioral, psychotic, or mood disturbance or anxiety Qualified Code(s): G30.1 - Alzheimer's disease with late onset; F02.B0 - Dementia in other diseases classified elsewhere, moderate, without behavioral disturbance, psychotic disturbance, mood disturbance, and anxiety (2) Multifactorial dementia: Code(s): F03.90 - Unspecified dementia, unspecified severity, without behavioral disturbance, psychotic disturbance, mood disturbance, and anxiety Category: Medical (3) Tremor: Code(s): R25.1 - Tremor, unspecified Category: Medical (4) Painful diabetic neuropathy: Code(s): E11.40 - Type 2 diabetes mellitus with diabetic neuropathy, unspecified Category: Medical (5) Cerebral microvascular disease: Code(s): I67.89 - Other cerebrovascular disease Category: Medical Plan Impression: a: Multifactorial dementia b: Degenerative dementia, probably of Alzheimer type c: Cerebral microvascular ischemic disease of brain d: Pinful diabetic neuropathy e: Multifactorial gait disorder f: s/p right carotid endarterectomy Rec: a: Memantine 10mg bid b: Donepezil 10mg a day c: No alcohol d: Gabapentin 300mg one at night for neuropathy pain e: Primidone 50mg one at night for tremor f: Use a walker g: Continue baby aspirin or clopidogrel 75mg daily for cerebrovascular concerns. Both are not needed for neurological issues. h: Continue statin Medications: New gabapentin 300 mg PO ONCE 90 caps 1RF donepezil 10 mg PO BEDTIME 90 tabs 1RF primidone 50 mg PO DAILY 90 tabs 1RF Refilled memantine 10 mg PO BID 180 tabs 1RF Coding Level of Care Code Est Pt Level 5 (66989) Diagnoses Moderate late onset Alzheimer's dementia without behavioral disturbance, psychotic disturbance, mood disturbance, or anxiety G30.1; F02.B0 Alzheimer's disease onset: late onset Dementia severity: moderate Dementia behavioral or psychological symptom: without behavioral, psychotic, or mood disturbance or anxiety Multifactorial dementia F03.90 Tremor R25.1 Painful diabetic neuropathy E11.40 Cerebral microvascular disease I67.89
== END 2025-06-07 09:09 | disposition home or self-care (01) ==
PROVIDERS: PCP Internal Medicine; Referring Provider Internal Medicine; Visit Provider Psychiatry & Neurology Neurology
DX: G30.1 Alzheimer's disease with late onset (principal); F02.B0 Dementia in other diseases classified elsewhere, moderate, without behavioral disturbance, psychotic disturbance, mood disturbance, and anxiety; R25.1 Tremor, unspecified; E11.40 Type 2 diabetes mellitus with diabetic neuropathy, unspecified; I67.89 Other cerebrovascular disease
CPT/HCPCS: 99214

== ENCOUNTER → 2025-06-07 08:23 | Outpatient (BNVA) | payer MEDICARE, OTHER, SELFPAY | PROVIDERS: PCP Internal Medicine; Referring Provider Internal Medicine; Visit Provider Psychiatry & Neurology Neurology | DX: G30.1 Alzheimer's disease with late onset (principal); F02.B0 Dementia in other diseases classified elsewhere, moderate, without behavioral disturbance, psychotic disturbance, mood disturbance, and anxiety; R25.1 Tremor, unspecified; E11.40 Type 2 diabetes mellitus with diabetic neuropathy, unspecified; I67.89 Other cerebrovascular disease | CPT/HCPCS: 99212 ==